=== PATIENT | female | born 1990 | race Caucasian/White ===

== ENCOUNTER 2017-06-24 16:37 | Emergency (ER) | payer OTHER ==
[~2017-06-24] VITALS: Ht 167.6 cm; Wt 81.7 kg
[~2017-06-24 16:37] MED LIST: ACETAMINOPHEN-1 EAC1 PO; ATIVAN0.5 MG PO; COLACE100 MG PO; IBUPROFEN 800800 MG PO; LIDOCAINE-HC 3-07 G2 RC; PERCOCET 5-3251 EACH PO; TAMSULOSIN HCL0.4 M1 PER TUBE; TYLENOL325 MG PO
[2017-06-24] MEDS ORDERED: LEXAPRO 10 MG T10 M1 PO (16:50)
[2017-06-24 17:23] LABS: URINE BILIRUBIN NEGATIVE (Negative); URINE BLOOD NEGATIVE (Negative); URINE CLARITY CLEAR; URINE GLUCOSE-RANDOM NEGATIVE (Negative); URINE KETONES NEGATIVE (Negative); URINE LEUKOCYTES-REFLEX TRACE (Negative); URINE NITRITE-REFLEX NEGATIVE (Negative); URINE PROTEIN NEGATIVE (Negative); URINE SPECIFIC GRAVITY <= 1.005 (1.005-1.030); URINE UROBILINOGEN 0.2 E.U./dl (0.2-1.0)
[2017-06-24 17:25] LABS: URINE COLOR PALE YELLOW
[2017-06-24 17:43] LABS: ABSOLUTE BASOPHILS 0.1 thou/uL (0.0-0.2); ABSOLUTE EOSINOPHILS 0.1 thou/uL (0.0-0.7); ABSOLUTE LYMPHOCYTES 2.4 thou/uL (0.8-5.3); ABSOLUTE MONOCYTES 0.7 thou/uL (0.0-1.2); ABSOLUTE NEUTROPHILS 5.5 thou/uL (1.6-8.1); BASOPHILS 0.7 %; EOSINOPHILS 1.5 %; HEMATOCRIT 40.2 % (37.0-47.0); HEMOGLOBIN 13.6 gm/dL (12.0-15.0); LYMPHOCYTES 27.3 %; MCH 30.2 pg (26.0-34.0); MCHC 33.9 g/dL (28.0-37.0); MCV 89.1 fL (80.0-100.0); MONOCYTES 7.9 %; MPV 8.9 fl. (7.2-11.1); NUCLEATED RBCS 0 /100WBC; PLATELET COUNT* 185 thou/uL (150-400); POLYS 62.6 %; RBC 4.51 mil/uL (4.20-5.00); RDW-CV 12.1 % (10.5-14.5); WBC 8.8 thou/uL (4.0-11.0)
[2017-06-24 17:49] LABS: CASTS None Seen /LPF (None Seen); CRYSTALS None Seen /LPF (None Seen); SQUAMOUS 4-10 Moderate /LPF (0-3); URINE RBC 0-2 Rare /HPF (0-2); URINE WBC-REFLEX 0-5 Rare /HPF (0-5)
[2017-06-24 17:57] LABS: ANION GAP 6 mmol/L (7-16); BUN 17 mg/dL (7-18); CALCIUM 9.1 mg/dL (8.5-10.1); CHLORIDE 104 mmol/L (98-107); CO2 30 mmol/L (21-32); CREATININE 0.7 mg/dL (0.6-1.3); GLUCOSE 89 mg/dL (70-99); POTASSIUM 3.5 mmol/L (3.5-5.1); SODIUM 140 mmol/L (136-145)
[2017-06-24 18:02] LABS: ALBUMIN 3.9 g/dL (3.4-5.0); ALKALINE PHOSPHATASE 74 U/L (46-116); SGOT 18 U/L (15-37); SGPT 27 U/L (30-65); TOTAL BILIRUBIN 0.3 mg/dL (<0.1-1.0); TOTAL PROTEIN 7.5 g/dL (6.4-8.2); TROPONIN-I LEVEL <0.06 ng/mL (<0.06)
[2017-06-24] MEDS ORDERED: IBUPROFEN 600600 M1 PO (18:14)
[2017-06-24 18:26] VITALS: BP 122/70
--- NOTE | 2017-06-25 15:52 | EKG ---
[place] [address] ELECTROCARDIOGRAM REPORT Name: NJ LOCKHART Room: [facility]#: [id number] Admission: 06/24/17 Attend Phys: Discharge: 06/24/17 Date of : 89 Report #: [id number] THIS REPORT FOR: //name// [facility] ED Test Date: 2017-06-24 Test Time: 16:44:57 Pat Name: NJ LOCKHART Department: Room: Gender: F [employer] Counselor: Bong MONTOYA : 1990 Requested By: Ivonne Enrique Order Number: [id number] Elif MD: Chuy Vazquez Measurements Intervals Elbert Rate: 72 P: 73 MN: 193 QRS: 72 QRSD: 93 T: 33 QT: 370 QTc: 405 Interpretive Statements Sinus rhythm Left atrial enlargement Compared to ECG 03/26/2017 08:30:01 T-wave abnormality no longer present Electronically Signed On 06-25-2017 15:51:52 [employer] by Chuy Vazquez [email or web address] <ELECTRONICALLY SIGNED> By: Chuy Vazquez MD, [facility] 06/25/17 1551 D: [id number] Chuy Vazquez MD, FACC /EPI
== END 2017-06-24 18:26 | disposition home or self-care (01) ==
LOC: M.ERS 16:37
PROVIDERS: Nurse Practitioner Family
DX: R07.89 Other chest pain (principal); F41.9 Anxiety disorder, unspecified; F17.210 Nicotine dependence, cigarettes, uncomplicated

== ENCOUNTER 2018-02-27 13:48 | Emergency (ER) | payer OTHER ==
[~2018-02-27] VITALS: Ht 167.6 cm; Wt 86.2 kg
[~2018-02-27 13:48] MED LIST changes: +IBUPROFEN 600600 M1 PO; +LEXAPRO 10 MG T10 M1 PO
[2018-02-27] MEDS ORDERED: ZYRTEC10 M5 PO (14:07)
[2018-02-27] MEDS ORDERED: METFORMIN HCL500 MG PO (14:07)
[2018-02-27 14:25] LABS: URINE BLOOD 1+ (Negative); URINE CLARITY CLEAR; URINE COLOR YELLOW; URINE GLUCOSE-RANDOM NEGATIVE (Negative); URINE KETONES NEGATIVE (Negative); URINE LEUKOCYTES-REFLEX 1+ (Negative); URINE NITRITE-REFLEX NEGATIVE (Negative); URINE PROTEIN 1+ (Negative); URINE SPECIFIC GRAVITY >= 1.030 (1.005-1.030); URINE UROBILINOGEN 0.2 E.U./dl (0.2-1.0)
[2018-02-27 14:28] LABS: ICTOTEST (BILI CONFIRMATORY) Negative (Negative); URINE BILIRUBIN 1+ (Negative)
[2018-02-27 14:29] LABS: SQUAMOUS >10 Many /LPF (0-3)
[2018-02-27 14:30] LABS: BACTERIA-REFLEX 1-9 Few /HPF (None Seen); CASTS None Seen /LPF (None Seen); CRYSTALS None Seen /LPF (None Seen); MUCUS 4-6 Moderate strn/LPF (None Seen); URINE RBC None Seen /HPF (0-2); URINE WBC-REFLEX 0-5 Rare /HPF (0-5)
[2018-02-27 14:35] LABS: ABSOLUTE EOSINOPHILS 0.3 thou/uL (0.0-0.7); ABSOLUTE LYMPHOCYTES 1.5 thou/uL (0.8-5.3); ABSOLUTE NEUTROPHILS 10.7 thou/uL (1.6-8.1); BASOPHILS 0.3 %; EOSINOPHILS 1.9 %; HEMATOCRIT 47.2 % (37.0-47.0); HEMOGLOBIN 16.2 gm/dL (12.0-15.0); LYMPHOCYTES 11.1 %; MCH 30.4 pg (26.0-34.0); MCHC 34.3 g/dL (28.0-37.0); MCV 88.6 fL (80.0-100.0); MONOCYTES 7.4 %; MPV 8.4 fl. (7.2-11.1); NUCLEATED RBCS 0 /100WBC; PLATELET COUNT* 237 thou/uL (150-400); POLYS 79.3 %; RBC 5.32 mil/uL (4.20-5.00); RDW-CV 11.9 % (10.5-14.5); WBC 13.5 thou/uL (4.0-11.0)
[2018-02-27 14:57] LABS: CALCIUM 9.1 mg/dL (8.5-10.1); CREATININE 0.9 mg/dL (0.6-1.3); POTASSIUM 3.5 mmol/L (3.5-5.1)
[2018-02-27 15:02] LABS: ALBUMIN 4.4 g/dL (3.4-5.0); TOTAL BILIRUBIN 0.5 mg/dL (<0.1-1.0); TOTAL PROTEIN 8.7 g/dL (6.4-8.2)
[2018-02-27] MEDS ORDERED: ZOFRAN ODT4 MG PO (16:12)
[2018-02-27] MEDS ORDERED: BENTYL 20 MG TA20 M1 PO (16:12)
[2018-02-27 16:36] VITALS: BP 103/55
== END 2018-02-27 16:38 | disposition home or self-care (01) ==
LOC: M.ERS 13:48
PROVIDERS: Nurse Practitioner Family
DX: K52.9 Noninfective gastroenteritis and colitis, unspecified (principal); F41.9 Anxiety disorder, unspecified; F17.210 Nicotine dependence, cigarettes, uncomplicated

== ENCOUNTER 2019-01-18 01:49 | Emergency (ER) | payer OTHER ==
[~2019-01-18] VITALS: Ht 167.6 cm; Wt 90.7 kg
[~2019-01-18 01:49] MED LIST changes: +BENTYL 20 MG TA20 M1 PO; +METFORMIN HCL500 MG PO; +ZOFRAN ODT4 MG PO; +ZYRTEC10 M5 PO
[2019-01-18] MEDS ORDERED: FLONASE 0.05%50 MCG NASAL (01:56)
[2019-01-18] MEDS ORDERED: PREDNISONE (01:57)
[2019-01-18] MEDS ORDERED: VENTOLIN HFA 1818 GM INH (01:57)
[2019-01-18 03:07] VITALS: BP 121/61
== END 2019-01-18 03:08 | disposition home or self-care (01) ==
LOC: M.ERS 01:49
DX: J06.9 Acute upper respiratory infection, unspecified (principal); F17.210 Nicotine dependence, cigarettes, uncomplicated; F41.9 Anxiety disorder, unspecified; Z87.442 Personal history of urinary calculi

== ENCOUNTER 2019-04-22 20:41 | Emergency (ER) | payer OTHER ==
[~2019-04-22] VITALS: Ht 167.6 cm; Wt 81.7 kg
[~2019-04-22 20:41] MED LIST changes: +FLONASE 0.05%50 MCG NASAL; +PREDNISONE; +VENTOLIN HFA 1818 GM INH
[2019-04-22 21:47] LABS: ABSOLUTE BASOPHILS 0.1 thou/uL (0.0-0.2); ABSOLUTE EOSINOPHILS 0.2 thou/uL (0.0-0.7); ABSOLUTE LYMPHOCYTES 3.2 thou/uL (0.8-5.3); ABSOLUTE MONOCYTES 0.7 thou/uL (0.0-1.2); ABSOLUTE NEUTROPHILS 7.6 thou/uL (1.6-8.1); BASOPHILS 0.6 %; EOSINOPHILS 1.6 %; HEMATOCRIT 44.7 % (37.0-47.0); HEMOGLOBIN 14.9 gm/dL (12.0-15.0); LYMPHOCYTES 26.9 %; MCH 29.7 pg (26.0-34.0); MCHC 33.4 g/dL (28.0-37.0); MCV 88.7 fL (80.0-100.0); MPV 8.4 fl. (7.2-11.1); NUCLEATED RBCS 0 /100WBC; PLATELET COUNT* 230 thou/uL (150-400); POLYS 64.9 %; RBC 5.04 mil/uL (4.20-5.00); RDW-CV 12.6 % (10.5-14.5); WBC 11.7 thou/uL (4.0-11.0)
[2019-04-22 22:01] LABS: CALCIUM 8.9 mg/dL (8.5-10.1); CREATININE 0.9 mg/dL (0.6-1.3); POTASSIUM 3.4 mmol/L (3.5-5.1)
[2019-04-22 22:14] LABS: ALBUMIN 4.2 g/dL (3.4-5.0); TOTAL BILIRUBIN 0.2 mg/dL (<0.1-1.0); TOTAL PROTEIN 7.8 g/dL (6.4-8.2)
[2019-04-22] MEDS ORDERED: BUTALB-APAP-CA1 EACH PO (23:15)
[2019-04-22] MEDS ORDERED: IBUPROFEN 800800 M1 PO (23:15)
[2019-04-22 23:47] VITALS: BP 155/55
== END 2019-04-22 23:49 | disposition home or self-care (01) ==
LOC: M.ERS 20:41
PROVIDERS: Nurse Practitioner Family
DX: G43.909 Migraine, unspecified, not intractable, without status migrainosus (principal); F41.9 Anxiety disorder, unspecified; F17.210 Nicotine dependence, cigarettes, uncomplicated; Z87.442 Personal history of urinary calculi